=== PATIENT | female | born 1950 | race Caucasian/White ===

== ENCOUNTER → 2019-01-28 | Day surgery (SDC) | payer BC ==
--- NOTE | 2019-01-28 16:45 | OP ---
DATE OF OPERATION: 01/28/2019 PREOPERATIVE DIAGNOSIS: Left breast mass 12 o'clock, 6 cm from the nipple. POSTOPERATIVE DIAGNOSIS: Left breast mass 12 o'clock, 6 cm from the nipple. PROCEDURE: Left ultrasound guided core biopsy with clip placement. ANESTHESIA: Local. COMPLICATIONS: None. DESCRIPTION OF PROCEDURE: Patient was made aware of the risks and benefits of the procedure and consented. She was placed in supine position. Under sterile conditions with 1% lidocaine for local anesthesia, a small ned was made in the skin using a 13 gauge suction biopsy device, via lateral approach, under ultrasound guidance 6 cores were obtained and submitted to pathology. Likewise under ultrasound guidance a U-shaped clip was placed into the biopsy region. Well tolerated by patient. Steri-Strips and a sterile bandage were then applied. No evidence of implant rupture. Will contact patient with result. YUMKIO AGUIAR M.D. [id number]
--- NOTE | 2019-01-31 16:21 | PATH ---
Surgical Pathology Report Patient Name: KATHE ROBBINS [facility]. Rec. #: [id number] /Age/Gender: 1950 (Age: 68) / F Account: [id number] Location: [facility] RADIOLOGY U Taken: 01/28/2019 Received: 01/28/2019 Reported: 01/31/2019 Physicians: Yana Clements M.D. Specimen(s) Received LEFT BREAST 12:00 N6 CORE BIOPSY Clinical History Palpable mass Ultrasound findings: Highly suspicious/malignant Final Diagnosis BREAST, LEFT, 12:00 6 CM FN, CORE BIOPSY: INVASIVE DUCTAL CARCINOMA, WELL DIFFERENTIATED WITH FEW ASSOCIATED CALCIFICATIONS, MEASURING AT LEAST 9 MM IN GREATEST DIMENSION IN THIS MATERIAL. DUCTAL CARCINOMA IN SITU (DCIS), MICROPAPILLARY TYPE, INTERMEDIATE NUCLEAR GRADE. Results of ER and NC studies performed at [facility] are as follows: ER (clone [id number] mouse monoclonal antibody by Le[employer]): 100 % nuclear staining with strong intensity (Positive). NC (clone16 mouse monoclonal antibody by Leica): 100 % nuclear staining with strong intensity (Positive). Results of Her2 IHC & [id number] will be reported separately in an addendum. Positive and negative controls (internal if applicable) show appropriate results. Formalin fixation and cold ischemic times are within current ASCO/CAP recommendations for ER, NC and Her2 testing. Electronically Signed Leonila Lamb M.D. Addendum Reported: 02/03/2019 Addendum Diagnosis Results of Her2 (IHC) & Ki-67 studies performed on at [place], [place] ([id number]) are as follows: Her2 IHC (EP3 from [employer], formerly known as [id number], using Hopson Polymer Refine detection kit): 0 (Negative). Ki-67: < 5% (low proliferative index). Positive and negative controls (internal if applicable) show appropriate results. Leonila Lamb M.D. Gross Description Received in formalin labeled "left breast 12:00, 6cmfn," are 7 claire-yellow, cylindrical portions of fibroadipose tissue ranging from 0.6-1.5 cm in length and averaging 0.1 cm in diameter. The specimens are submitted in toto in one cassette. Time to formalin fixation: < 1 minute Total formalin fixation time: Approximately 50 hours. DL/01/28/2019 saudi01/28/2019
== END | disposition home or self-care (01) ==
LOC: FRADUS-SUR 10:02 → EDSTATUS 10:45
PROVIDERS: ATTEND Surgery Surgical Oncology
PROC: 0HBU3ZX Excision of Left Breast, Percutaneous Approach, Diagnostic (ICD-10-PCS; principal; 2019-01-28)
DX: C50.812 Malignant neoplasm of overlapping sites of left female breast (principal); D05.92 Unspecified type of carcinoma in situ of left breast; Z17.0 Estrogen receptor positive status [ER+]; N63.20 Unspecified lump in the left breast, unspecified quadrant; N64.89 Other specified disorders of breast
CPT/HCPCS: 19083; 76641-TC-50; 77066-TC; 87899; 88305-TC; 88342-TC; A4648; G0279-TC

== ENCOUNTER 2019-03-08 09:17 | Day surgery (SDC) | payer BC ==
[2019-03-01 11:05] VITALS: BMI 22.2
--- NOTE | 2019-03-03 09:10 | HP ---
Admitting History and Physical - Primary Care Physician PCP: Yana Clements - Admission Chief Complaint: Left breast cancer History of Present Illness: 68 year old female who had a follow up CT scan of lung nodules and incidentally was found to have a left breast mass 11x8mm. Mammogram revealed a spiculated 12 mm mass central portion of left breast . Left breast US confirmed at 12:00 6 cm FN an irregular mass Birad 5. US core bx left breast 12:00 6 cm FN on 01/28/2019 showed an invasive ductal carcinoma, ER/MT+ HER2-. She has bilateral saline implants. History Source: Patient Limitations to Obtaining History: No Limitations - Past Medical History Pulmonary: Yes: COPD, Other (Lung nodules followed by CT scan) ...: No Psych: Yes: Anxiety, Depression, Panic (attacks) Endocrine: Yes: Hypothyroidism - Past Surgical History Past Surgical History: Yes: Hysterectomy (2003), Oopherectomy (1981 benign), Tubal Ligation (1975) Additional Past Surgical History: 1979 exploratory lap - Smoking History Smoking history: Current every day smoker Have you smoked in the past 12 months: Yes Aproximately how many cigarettes per day: 10 - Alcohol/Substance Use Hx Alcohol Use: Yes (2 BEER/DAY) Home Medications - Allergies Allergies/Adverse Reactions: Allergies Allergy/AdvReac Type Severity Reaction Status Date / Time No Known Drug Allergies Allergy Verified 03/01/19 10:52 - Home Medications Home Medications: Ambulatory Orders Diazepam [Valium] 10 mg PO DAILY 03/01/19 Levothyroxine Sodium [Synthroid] 88 mcg PO DAILY 03/01/19 Quetiapine Fumarate "Xr" [Seroquel Xr -] 150 mg PO HS 03/01/19 Ranitidine HCl [Zantac] 150 mg PO DAILY 03/01/19 Family Disease History - Family Disease History Family Disease History: CA: Mother (lung ca/endometrial ca), Son (melanoma nose) , Other: Father (suicide) Physical Examination Constitutional: Yes: Well Nourished Breast(s): Yes: Other (diffusely nodule bilaterally, left 1N6 1.5 cm mobile mass) Problem List - Problems (1) Breast cancer, left breast Code(s): C50.912 - MALIGNANT NEOPLASM OF UNSPECIFIED SITE OF LEFT FEMALE BREAST Qualifiers: Breast location: overlapping sites of breast Estrogen receptor status: positive Patient sex: female Qualified Code(s): C50.812 - Malignant neoplasm of overlapping sites of left female breast; Z17.0 - Estrogen receptor positive status [ER+] Assessment/Plan Left breast wide excision ,sentenel node biopsy ,lymphoscintogram,possible axillary node dissection intraop radiation
[2019-03-08] MEDS ORDERED: ISOSULFAN BLUE 10 MG/ML VIAL SQ ONE (09:19)
[2019-03-08] MEDS ORDERED: LIDOCAINE HCL 1% PRESERVATIVE FREE - 30ML VIAL ONE (09:20)
[2019-03-08] MEDS ORDERED: BUPIVACAINE HCL/PF 2.5 MG/ML - 30 ML VIAL IJ ONE (09:20)
[2019-03-08] MEDS ORDERED: KETOROLAC TROMETHAMINE 30 MG/1 ML VIAL IVPUSH PRN (10:06)
[2019-03-08] MEDS ORDERED: ONDANSETRON 4 MG/2 ML VIAL IVPUSH PRN (10:06)
[2019-03-08] MEDS ORDERED: SEVOFLURANE 250 ML BTL ONE (10:12)
[2019-03-08] MEDS ORDERED: PROPOFOL 20 ML ONE ×2 (10:13)
[2019-03-08] MEDS ORDERED: MIDAZOLAM HCL 2 MG/2 ML SINGLE DOSE VIAL ONE (10:13)
[2019-03-08] MEDS ORDERED: LIDOCAINE HCL/PF 2% SDV 5ML VIAL ONE (10:14)
[2019-03-08] MEDS ORDERED: LIDOCAINE HCL 2% JELLY (5 ML/TUBE) ONE (10:14)
[2019-03-08] MEDS ORDERED: DEXAMETHASONE SOD PHOSPHATE 4 MG/1 ML VIAL ONE (10:14)
[2019-03-08] MEDS ORDERED: ceFAZolin SODIUM 1 GM VIAL ONE (10:14)
[2019-03-08] MEDS ORDERED: DEXTROSE 5%-0.45% SALINE 1,000 ML IV SCH (10:15)
[2019-03-08] MEDS ORDERED: ePHEDrine SULFATE 50 MG/1 ML AMPULE ONE (10:32)
[2019-03-08] MEDS ORDERED: oxyCODONE HCL 5 MG TABLET PO PRN ×2 (11:42)
[2019-03-08] MEDS ORDERED: LACTATED RINGERS SOLUTION 1,000 ML IV SCH (11:45)
[2019-03-08] MEDS ORDERED: BUPIVACAINE HCL/PF 0.25% (2.5MG/ML) 10 ML VIAL IJ ONE (12:38)
[2019-03-08] MEDS ORDERED: LIDOCAINE 1% P/F 10 MG/ML VIAL INF ONE (12:38)
[2019-03-08 13:23] VITALS: TEMP 97.7
[2019-03-08] MEDS ORDERED: ONDANSETRON 4 MG/2 ML VIAL ONE (13:32)
[2019-03-08 14:42] VITALS: BP 108/60; PULSE 74
--- NOTE | 2019-03-08 19:16 | OP ---
DATE OF OPERATION: 03/08/2019 PREOPERATIVE DIAGNOSIS: Left breast cancer. POSTOPERATIVE DIAGNOSIS: Left breast cancer. PROCEDURE: Post lumpectomy intraoperative radiation therapy for left breast cancer. ATTENDING SURGEON: Yana Clements MD SEARCH SPECIALIST/RADIATION ONCOLOGIST: Handy Hickman MD ANESTHESIA: General. COMPLICATIONS: None. INDICATION: The patient is a 68-year-old woman with a clinical stage IA T1c N0 M0, biopsy-proven, well-differentiated, invasive ductal carcinoma, ER/ID positive HER2 negative of the left breast, who has elected breast conservation. She agreed to undergo intraoperative radiation therapy on the [facility] registry immediately following left breast lumpectomy today. DESCRIPTION OF PROCEDURE: Dr. Yana Clements performed left lumpectomy and sentinel lymph node biopsy which he has dictated. After excision of additional margins, the lumpectomy cavity was prepared by suturing the deep breast tissue to close the cavity and to protect the chest wall. The lumpectomy cavity was sized with a 3.1-zb-xdbjpydn spherical applicator. The applicator was placed into the operative bed at 12:00, and the surrounding breast tissues were cinched around the applicator with a Vicryl purse-string suture. We performed a clinical and ultrasound simulation to ensure that the applicator was located within the operative bed with close apposition of the surrounding breast tissue to the surface of the applicator. An adequate distance between the applicator and chest wall and the skin was ensured by placement of saline-soaked Ray-Ema gauze between the skin and breast tissue. Our ultrasound measurement confirmed a minimum trpsjtddkb-bk-bsyq distance of 0.94 cm at the 12 o'clock aspect of the applicator which is adequate. Shielding material was placed over the breast to reduce scatter radiation. The patient received a total dose of 20 Gy prescribed to 0 mm from the applicator surface using 50 kV x-rays with the INTRABEAM system. Prior to treatment, the system was double checked with appropriate physics quality assurance monitor body measures. The total time required for the treatment was 18 minutes 10 seconds at a dose rate of 1.092 Gy per minute. When the treatment was completed , a survey of the patient and room confirmed that the INTRABEAM source was off. There were no complications or unexpected interruptions. Dr. Clements removed the radiation applicator from the patient and completed the surgery. DISPOSITION: The patient will be discharged to the recovery room following the surgery. Nnamdi [id number] cc: Yana Clements MD MTDD
--- NOTE | 2019-03-11 15:33 | PATH ---
Surgical Pathology Report Patient Name: KATHE ROBBINS [facility]. Rec. #: [id number] /Age/Gender: 1950 (Age: 68) / F Account: [id number] Location: [facility] AMBULATORY Taken: 03/08/2019 Received: 03/08/2019 Reported: 03/11/2019 Physicians: Yana Clements M.D. Specimen(s) Received A: LEFT AXILLARY SENTINEL NODES B: LEFT BREAST WIDE EXCISION C: LEFT BREAST MEDIAL MARGIN D: LEFT BREAST LATERAL MARGIN E: LEFT BREAST INFERIOR MARGIN F: LEFT BREAST SUPERIOR MARGIN G: LEFT BREAST DEEP MARGIN H: LEFT BREAST ANTERIOR MARGIN Clinical History Invasive Ca: wide excision Final Diagnosis A. LYMPH NODES, LEFT AXILLARY SENTINEL, EXCISION: THREE LYMPH NODES, NEGATIVE FOR METASTATIC CARCINOMA (0/3). B. BREAST, LEFT, WIDE EXCISION: INVASIVE DUCTAL CARCINOMA, WELL-DIFFERENTIATED (TUBULE SCORE: 2/3, NUCLEAR GRADE: 2/3, MITOTIC SCORE: 1/3, TOTAL SCORE: 5/9; BRADLEY GRADE 1) WITH FEW ASSOCIATED CALCIFICATIONS. INVASIVE CARCINOMA MEASURES 1.1 CM IN GREATEST DIMENSION, MICROSCOPICALLY. DUCTAL CARCINOMA IN SITU (DCIS.), CRIBRIFORM TYPE, INTERMEDIATE NUCLEAR GRADE IS PRESENT ADMIXED WITH INVASIVE CARCINOMA A MINOR COMPONENT. INVASIVE CARCINOMA IS FOCALLY CLOSE TO (< 1 MM) THE ANTERIOR MARGIN. DCIS IS AT 2 MM FROM THE CLOSEST (DEEP) MARGIN. SEE SPECIMENS C-H FOR FINAL MARGINS. NO LYMPHOVASCULAR INVASION IS IDENTIFIED. PRIOR BIOPSY SITE CHANGES ARE PRESENT. PATHOLOGIC STAGE (pTNM):pT1c pN0. SEE ALSO INVASIVE CARCINOMA CASE SUMMARY BELOW. C. BREAST, LEFT, MEDIAL MARGIN, EXCISION: BENIGN BREAST TISSUE. D. BREAST, LEFT, LATERAL MARGIN, EXCISION: BENIGN BREAST TISSUE. E. BREAST, LEFT, INFERIOR MARGIN, EXCISION: BENIGN BREAST TISSUE. F. BREAST, LEFT, SUPERIOR MARGIN, EXCISION: BENIGN FIBROADIPOSE TISSUE. G. BREAST, LEFT, DEEP MARGIN, EXCISION: BENIGN BREAST TISSUE. H. BREAST, LEFT, ANTERIOR MARGIN, EXCISION: BENIGN BREAST TISSUE. Comments Breast Invasive Carcinoma: Surgical Pathology Case Summary (Based on AJCC TNM 8 th edition) Procedure _X_ Excision (less than total mastectomy) Specimen Laterality _X_ Left Tumor Size _X_ Greatest dimension of largest invasive focus >1 mm (millimeters): 11 mm Histologic Type _X_ Invasive carcinoma of no special type (ductal, not otherwise specified) Histologic Grade (Bradley Histologic Score) Glandular (Acinar)/Tubular Differentiation _X_ Score 2 (10% to 75% of tumor area forming glandular/tubular structures) Nuclear Pleomorphism _X_ Score 2 Mitotic Rate _X_ Score 1 Overall Grade _X_ Grade 1 (scores of 3, 4, or 5) Tumor Focality _X_ Single focus of invasive carcinoma Ductal Carcinoma In Situ (DCIS) _X_ DCIS is present in specimen _X_ Negative for extensive intraductal component (EIC) Margins Invasive Carcinoma Margins _X_ Uninvolved by invasive carcinoma Distance from closest margin (millimeters): < 1 mm from anterior margin in wide excision B; final anterior margin H is negative for carcinoma. DCIS Margins _X_ Uninvolved by DCIS Distance from closest margin (millimeters): 2 mm from deep margin in wide excision B. Final deep margin G is negative for DCIS. Regional Lymph Nodes _X_ Uninvolved by tumor cells Number of Lymph Nodes Examined: 3 Number of [employer] Nodes Examined: 3 Treatment Effect _X_ No known presurgical therapy Lymphovascular Invasion _X_ Not identified Pathologic Stage Classification (pTNM, AJCC 8th Edition) Primary Tumor (Invasive Carcinoma) (pT) _X_ pT1c: Tumor >10 mm but =20 mm in greatest dimension Regional Lymph Nodes (pN) Category (pN) _X_ pN0: No regional lymph node metastasis identified or ITCs only Biomarker Studies Results of ER and ME studies performed on prior biopsy ([id number]) at [facility] are as follows: ER (clone 6F11 mouse monoclonal antibody by [employer]): 100 % nuclear staining with strong intensity (positive). ME (clone16 mouse monoclonal antibody by [employer]) : 100 % nuclear staining with strong intensity (positive). Results of Her2 (IHC) & Ki-67 studies performed on prior biopsy ([id number]) at [place], [place] ([id number]) are as follows: Her2 IHC (EP3 from [employer], formerly known as [id number], using Hopson Polymer Refine detection kit): 0 (negative). Ki67: < 5% (low proliferative index). Electronically Signed Leonila Lamb M.D. Gross Description A. Received in formalin labeled "left axillary sentinel nodes," are 3 claire lymph nodes ranging from 0.4-1.4 cm in greatest dimension. The lymph nodes are entirely submitted in 3 cassettes as follows: 1-one lymph node; 2-3-one bisected lymph node each. B. Received in formalin, labeled "left breast wide excision," is a 2.5 x 2.3 x 1.5 cm. claire-yellow, irregular portion of fibroadipose tissue. There is no needle localization wire present. There is a short suture marking the superior aspect and a long suture marking the lateral aspect, per the surgeon. There is no skin present. The specimen is inked as follows: superior and lateral blue; inferior green; medial yellow; anterior red; deep black. The specimen is serially sectioned from lateral to medial. Sectioning reveals a 1.0 x 1.0 x 0.7 cm claire, firm mass. The mass is at 0.1 cm from the anterior margin, 0.2 cm from the deep margin, 0.4 cm from the superior and medial margins and 0.5 cm from the inferior margin. Saw Offbearer sections are submitted in 5 cassettes as follows: 1-full-face section of mass with superior, inferior, anterior and deep margins; 6-1-wybctgufby full- face sections of mass, each with superior, inferior, anterior and deep margins; 4-medial margin; 5-lateral margin. Time to formalin fixation: Not given Total formalin fixation time: Approximately 27 hours C. Received in formalin labeled "left breast medial margin," is a 1.9 x 1.5 x 1.0 cm portion of fibroadipose tissue with a clip marking the new margin, per the surgeon. The new margin is inked blue and the specimen is serially sectioned. The specimen is entirely submitted in 2 cassettes. D. Received in formalin labeled "left breast lateral margin," is a 2.4 x 1.8 x 0.5 cm portion of fibroadipose tissue with a clip marking the new margin, per the surgeon. The new margin is inked blue and the specimen is serially sectioned. The specimen is entirely submitted in 2 cassettes. E. Received in formalin labeled "left breast inferior margin," is a 2.6 x 1.4 x 0.5 cm portion of fibroadipose tissue with a clip marking the new margin, per the surgeon. The new margin is inked blue and the specimen is serially sectioned. The specimen is entirely submitted in 2 cassettes. F. Received in formalin labeled "left breast superior margin," the 1.6 x 1.5 x 0.4 cm portion of fibroadipose tissue with a clip marking the new margin, per the surgeon. The new margin is inked blue and the specimen is serially sectioned. The specimen is entirely submitted in 2 cassettes. G. Received in formalin labeled "left breast deep margin," is a 2.3 x 2.2 x 0.9 cm portion of fibroadipose tissue with a clip marking the new margin, per the surgeon. The new margin is inked blue and the specimen is serially sectioned. The specimen is entirely submitted in 3 cassettes. H. Received in formalin labeled "left breast anterior margin," is a 1.3 x 1.3 x 0.5 cm portion of fibroadipose tissue with a clip marking the new margin, per the surgeon. The new margin is inked blue and the specimen is serially sectioned. The specimen is entirely submitted in 2 cassettes. 03/09/2019 saudi03/09/2019
--- NOTE | 2019-03-18 17:31 | OP ---
DATE OF OPERATION: 03/08/2019 PREOPERATIVE DIAGNOSIS: Left breast cancer. POSTOPERATIVE DIAGNOSIS: Left breast cancer. PROCEDURE: Left breast partial mastectomy with sentinel node biopsy and intraoperative radiation. ANESTHESIA: General intubated ATTENDING SURGEON: Yana Clements M.D. ESTIMATED BLOOD LOSS: Minimal. COMPLICATIONS: None. DESCRIPTION OF PROCEDURE: The patient was made aware of the risks and benefits of the procedure and consented. She was placed in supine position after going to nuclear medicine, where radioactive tracer was injected into the peritumoral skin. After general anesthesia was induced, the patient was intubated. The operative site was prepped and draped in the usual sterile fashion. Intraoperative ultrasound was used to identify the cancer and yasmine it out. 2.5 mL of 1% isosulfan blue was locally infiltrated into the peritumoral tissues. Waiting approximately 10 minutes, with gentle manual compression, a curvilinear incision was made in the left axilla using blunt and sharp dissection. Tissues were dissected down revealing blue hot lymph nodes totalling 3. These were surgically excised and submitted to pathology. Palpation of the axilla revealed no suspicious lymph nodes, and interrogation with the Neoprobe found no hot spots. The wound was copiously irrigated with normal saline, hemostasis maintained by electrocautery. The wound was closed by deep 3-0 Vicryl followed by running subcuticular 4-0 Monocryl. The left breast was approached by making a periareolar curved linear incision using electrocautery. Thick skin flaps were made. The mass was grasped and surgically excised, and submitted with a short suture superior, long suture lateral. Specimen radiographs confirmed the presence of the index lesion. Additional segments were taken medial, lateral, inferior, superior, deep, and anterior with clips at the new margin. The wound was copiously irrigated with normal saline. Hemostasis maintained by electrocautery. A 3.5 cm probe was then placed into the cavity, and the tissue was cinched around the probe using a number 1 Vicryl. Intraoperative ultrasound found all the distances were greater than 8 mm from the skin. Saline soaked gauze was used to protect the skin around the probe. A radiopaque material was placed over the probe and chest wall. The patient then underwent approximately 18 minutes of intraoperative radiation. The probe, gauze, suture were then removed. The wound was then closed with deep 2-0 Vicryl followed by subdermal 3-0 Vicryl followed by running subcuticular 4-0 Monocryl. 0.5% bupivacaine was infiltrated into the incision and deep tissues. Steri-Strips, sterile dressing, and a compression bra were then applied, and the patient having tolerated the procedure well was transferred to the recovery room in excellent condition. YANA CLEMENTS M.D. [id number]
== END 2019-03-08 15:15 | disposition home or self-care (01) ==
LOC: FASU 09:17
PROVIDERS: ATTEND Surgery Surgical Oncology
PROC: 0HBU0ZZ Excision of Left Breast, Open Approach (ICD-10-PCS; principal; 2019-03-08 11:00)
PROC: DMY07ZZ Contact Radiation of Left Breast (ICD-10-PCS; 2019-03-08 11:00)
DX: C50.812 Malignant neoplasm of overlapping sites of left female breast (principal); Z17.0 Estrogen receptor positive status [ER+]; J44.9 Chronic obstructive pulmonary disease, unspecified; R91.1 Solitary pulmonary nodule; F41.9 Anxiety disorder, unspecified; F32.9 Major depressive disorder, single episode, unspecified; F17.210 Nicotine dependence, cigarettes, uncomplicated; E03.9 Hypothyroidism, unspecified; Z90.710 Acquired absence of both cervix and uterus; Z90.722 Acquired absence of ovaries, bilateral
CPT/HCPCS: 76641-TC-50; 77290; 77300; 77316; 77332; 77370-TC; 77424; 78195-TC; 88307-TC; 94760; A9541; C9726